=== PATIENT | male | born 1980 | race Caucasian/White ===

== ENCOUNTER 2016-09-06 08:18 | Emergency (ER) | END 2016-09-06 18:17 | disposition short-term general hospital (02) | DX: N30.90 Cystitis, unspecified without hematuria (principal); R45.851 Suicidal ideations | CPT/HCPCS: 80053; 80306; 80307; 81001; 85025; Z7610 ==

== ENCOUNTER 2018-10-15 07:29 | Emergency (ER) | payer MEDICAID, OTHER ==
[~2018-10-15] VITALS: Ht 177.8 cm; Wt 106.0 kg
[~2018-10-15 07:29] MED LIST: NITR-58 PO; VENL37.59 PO
[2018-10-15 07:35] VITALS: Ht 177.8 cm; Wt 106.0 kg
--- NOTE | 2018-10-15 08:07 | PSY ---
Date/Time of Note Date/Time of Note DATE: 10/15/18 TIME: 08:02 Psychiatric Subjective Eval Consent Pt consented to telemedicine: Yes Subjective Evaluation Patient location: emergency Chief Complaint: Complains of having suicidal ideation with a plan Medical history Problems Medical Problems: (1) Cystitis Status: Acute (2) Suicidal ideation Status: Acute Allergies: Coded Allergies: No Known Allergy (Unverified , 09/06/16) Assessment and Plan Recommendation/Plan Discharge Disposition: Psychiatric inpatient Legal Status: Voluntary Assessment Additional comments: IDENTIFYING INFORMATION: 38 year old Male patient who is currently located at the hospital and for whom psychiatric consultation was requested. SOURCES OF INFORMATION: The patient who appears to be reliable and the medical records; the nursing staff. CHIEF COMPLAINT: "depressed". HISTORY OF PRESENT ILLNESS: The patient was interviewed via telemedicine in the presence of and under the supervision of nursing staff of the hospital. The consent to conducting this interview via telemedicine was obtained by the nursing staff at the hospital. Dr. Alan reports that the patient presented with SI. The patient reports having depressed mood, anhedonia, AH, attempted to run into traffic o harm self. The patient denies having insomnia, low appetite. The patient denies using alcohol heavily or regularly. The patient reports using meth once per month. Last use was 1 day ago. The patient denies using any other substances. In terms of past psychiatric history, the patient reports having a history of past psychiatric hospitalizations. The patient reports having a history of past suicide attempts. PAST MEDICAL HISTORY: none. CURRENT MEDICATIONS: seroquel 200 mg po qhs, remeron 15 mg po qhs, ativan unknown dose. ALLERGIES TO MEDICATIONS: NKDA. LABORATORY TESTS: pending. SOCIAL HISTORY: single, no children; not employed. REVIEW OF SYSTEMS: Constitutional (e.g., fever, weight loss): negative; Eyes, Ears, Nose, Mouth, Throat: negative; Cardiovascular: negative; Respiratory: negative; Gastrointestinal: negative; Genitourinary: negative; Musculoskeletal: negative; Integumentary (skin and/or breast): negative; Neurological: negative; Psychiatric: as per HPI; Endocrine: negative; Hematologic/Lymphatic: negative; Allergic/Immunologic: negative. MENTAL STATUS EXAMINATION: General Appearance and Behavior: Calm, cooperative with the interview, pleasant with the current interviewer, makes fair eye contact, fairly groomed, no abnormal movements noted, Speech: Regular rate, regular rhythm, normal latency, normal volume, somewhat decreased amount, Flow of thought: sequential, logical, goal-directed, Content of thought: + auditory hallucinations, no visual hallucinations, no delusions, positive for suicidal ideation; no homicidal ideation, Mood: "depressed", Affect: dysthymic, dysphoric, not reactive, Attention: normal based on the interview, Insight: fair, Judgment: poor, Memory: normal based on the interview, Sensorium: alert and oriented to person, place and date. ASSESSMENT: The patient's presentation and history are consistent with the diagnosis of unspecified psychotic disorder, stimulant use disorder. The patient presents with depressive and psychotic symptoms in the context of reported medication compliance, psychosocial stressors and substance use. PLAN: - Medication management: Would continue seroquel 100 mg po qhs, remeron 15 mg po qhs, ativan 0.5 mg by mouth twice a day as needed for anxiety. Would start haloperidol 5 mg IM PRN severe agitation q4 hours. Would start diphenhydramine 50 mg IM PRN severe agitation q4 hours. Would start lorazepam 2 mg IM PRN severe agitation q4 hours Will defer to the inpatient psychiatry team for other medication changes. - Labs: Please check CBC, CMP, Alcohol level, UDS. - Psychotherapy: Provided supportive psychotherapy and psychoeducation. - Disposition: Would recommend voluntary admission to the inpatient psychiatric unit as the patient would benefit from such an intervention so long as the patient has been cleared medically for admission to psychiatry. The patient is agreeable to being hospitalized in the inpatient psychiatric unit at this time. Would place on suicide precautions. Discussed about the above plan with Dr. Alan. ALVINO PAGAN MD Oct 15, 2018 08:07
[2018-10-15] MEDS ORDERED: LORAZEPAM 0.5 MG TAB PO SCH (09:00)
--- NOTE | 2018-10-15 11:23 | ERD ---
ER Documentation Chief Complaint Chief Complaint Complains of having suicidal ideation with a plan HPI Patient is a 38-year-old male who presents with suicidal thoughts. He has had 2 weeks where he felt isolated at home. He has suicidal ideation with plan. Upon review of old medical records the patient one previous visit to the ER in 2017. Review of the emergency department information exchange system shows visits to 4 separate emergency departments. ROS All systems reviewed and are negative except as per history of present illness. Medications Home Meds Active Scripts Nitrofurantoin Monohyd Macrocr* (Macrobid*) 100 Mg Capsr, 100 MG PO BID for 7 Days, CAP Prov:MIRTA WARD MD 09/06/16 Reported Medications Venlafaxine Hcl* (Effexor XR*) Unknown Strength Tab.er.24, PO DAILY, TAB 09/06/16 Allergies Allergies: Coded Allergies: No Known Allergy (Unverified , 09/06/16) PMhx/Soc History of Surgery: No Anesthesia Reaction: No Hx Neurological Disorder: No Hx Respiratory Disorders: No Hx Cardiac Disorders: No Hx Psychiatric Problems: No Hx Miscellaneous Medical Probl: Yes (depression) Hx Alcohol Use: No Hx Substance Use: No Hx Tobacco Use: No Smoking Status: Never smoker FmHx Family History: No diabetes Physical Exam Vitals Vital Signs Date Temp Pulse Resp B/P (MAP) Pulse Ox O2 O2 Flow FiO2 Time Delivery Rate 10/15/18 98.3 110 20 151/79 93 07:35 (103) Physical Exam Const: No acute distress Head: Atraumatic Eyes: Normal Conjunctiva ENT: Normal External Ears, Nose and Mouth. Neck: Full range of motion. No meningismus. Resp: Clear to auscultation bilaterally Cardio: Regular rate and rhythm, no murmurs Abd: Soft, non tender, non distended. Normal bowel sounds Skin: No petechiae or rashes Back: No midline or flank tenderness Ext: No cyanosis, or edema Neur: Awake and alert Psych: Positive for suicidal ideation with plan Result Diagram: 10/15/18 0757 10/15/18 0757 Results 24 hrs Laboratory Tests Test 10/15/18 07:57 White Blood Count 5.0 10^3/ul Red Blood Count 4.42 10^6/ul Hemoglobin 13.3 g/dl Hematocrit 39.8 % Mean Corpuscular Volume 90.0 fl Mean Corpuscular Hemoglobin 30.1 pg Mean Corpuscular Hemoglobin Concent 33.4 g/dl Red Cell Distribution Width 13.3 % Platelet Count 282 10^3/UL Mean Platelet Volume 9.4 fl Immature Granulocytes % 0.400 % Neutrophils % 54.5 % Lymphocytes % 31.7 % Monocytes % 7.5 % Eosinophils % 5.5 % Basophils % 0.4 % Nucleated Red Blood Cells % 0.0 /100WBC Immature Granulocytes # 0.020 10^3/ul Neutrophils # 2.7 10^3/ul Lymphocytes # 1.6 10^3/ul Monocytes # 0.4 10^3/ul Eosinophils # 0.3 10^3/ul Basophils # 0.0 10^3/ul Nucleated Red Blood Cells # 0.0 10^3/ul Urine Color YELLOW Urine Clarity CLEAR Urine pH 5.0 Urine Specific [place] 1.011 Urine Ketones NEGATIVE mg/dL Urine Nitrite NEGATIVE mg/dL Urine Bilirubin NEGATIVE mg/dL Urine Urobilinogen NEGATIVE mg/dL Urine Leukocyte Esterase NEGATIVE Dalia/ul Urine Hemoglobin NEGATIVE mg/dL Urine Glucose NEGATIVE mg/dL Urine Total Protein NEGATIVE mg/dl Sodium Level 141 mmol/L Potassium Level 4.4 mmol/L Chloride Level 101 mmol/L Carbon Dioxide Level 28 mmol/L Anion Gap 12 Blood Urea Nitrogen 15 mg/dl Creatinine 0.73 mg/dl Est Glomerular Filtrat Rate mL/min > 60 mL/min Glucose Level 106 mg/dl Calcium Level 10.0 mg/dl Total Bilirubin 0.8 mg/dl Direct Bilirubin 0.00 mg/dl Indirect Bilirubin 0.8 mg/dl Aspartate Amino Transf (AST/SGOT) 30 IU/L Alanine Aminotransferase (ALT/SGPT) 30 IU/L Alkaline Phosphatase 75 IU/L Total Protein 7.3 g/dl Albumin 4.4 g/dl Globulin 2.90 g/dl Albumin/Globulin Ratio 1.51 Salicylates Level < 1.0 mg/dl Urine Opiates Screen Negative Acetaminophen Level < 10.0 ug/ml Urine Barbiturates Negative Urine Amphetamines Screen POSITIVE Urine Benzodiazepines Screen Negative Urine Cocaine Screen Negative Urine Cannabinoids Negative Ethyl Alcohol Level < 10.0 mg/dl Current Medications Medications Dose Sig/Minoo Start Time Status Last (Trade) Ordered Route PRN Stop Time Admin Dose Reason Admin Quetiapine 100 mg QHS PO 10/15/18 Fumarate 21:00 (Seroquel) Mirtazapine 15 mg QHS PO 10/15/18 (Remeron) 21:00 Lorazepam 0.5 mg BID PO 10/15/18 10/15/18 (Ativan) 09:00 08:24 Procedures/MDM Patient is a 38-year-old male who presents with suicidal ideation with plan. He was recommended 5150 hold by psychiatry. I have ordered psychiatric medications. The patient will need transfer to a psychiatric facility. He is now medically clear. Departure Diagnosis: Primary Impression: Suicidal ideation Condition: MIRTA Gong MD Oct 15, 2018 11:23
[2018-10-15 13:35] VITALS: BP 117/71; PULSE 77; RESP 18
[2018-10-15] MEDS ORDERED: QUETIAPINE 100 MG TAB PO SCH (21:00)
[2018-10-15] MEDS ORDERED: MIRTAZAPINE 15 MG TAB PO SCH (21:00)
== END 2018-10-15 13:54 ==
LOC: E/R 07:29
DX: R45.851 Suicidal ideations (principal)
CPT/HCPCS: 36415; 80053; 80307; 81003; 85025; Z7502; Z7610

== ENCOUNTER 2018-12-11 05:35 | Emergency (ER) | payer OTHER ==
[~2018-12-11] VITALS: Ht 180.3 cm; Wt 107.0 kg
[2018-12-11 05:40] VITALS: Ht 180.3 cm; Wt 107.0 kg
--- NOTE | 2018-12-11 09:17 | ERD ---
ER Documentation Chief Complaint Chief Complaint PT STATES HE WANTS TO KILL HIMSELF BY RUNNING INTO TRAFFIC HPI This is a 38-year-old male with a past medical history of bipolar schizoaffec tive disorder and depression. The patient indicates for the past 2 days he has been having suicidal thoughts. He has a plan where he states he wants to run in front of traffic. He states he was on Cymbalta [place] running in front of traffic just prior to arrival. He came to the emergency department requesting help. He states he has not taken any of his antipsychotic medications for the past 48 hours. He states he had multiple previous suicide attempt in the past where he is overdosed on medications, slit his wrists and jumped in front of traffic. He denies any chest pain. He has no shortness of breath. He has no fevers or shaking or chills. ROS All systems reviewed and are negative except as per history of present illness. Medications Home Meds Active Scripts Nitrofurantoin Monohyd Macrocr* (Macrobid*) 100 Mg Capsr, 100 MG PO BID for 7 Days, CAP Prov:MIRTA WARD MD 09/06/16 Reported Medications Venlafaxine Hcl* (Effexor XR*) Unknown Strength Tab.er.24, PO DAILY, TAB 09/06/16 Allergies Allergies: Coded Allergies: No Known Allergy (Unverified , 09/06/16) PMhx/Soc History of Surgery: No Anesthesia Reaction: No Hx Neurological Disorder: No Hx Respiratory Disorders: No Hx Cardiac Disorders: No Hx Psychiatric Problems: No Hx Miscellaneous Medical Probl: Yes (depression) Hx Alcohol Use: No Hx Substance Use: No Hx Tobacco Use: No Physical Exam Vitals Vital Signs Date Temp Pulse Resp B/P (MAP) Pulse Ox O2 O2 Flow FiO2 Time Delivery Rate 12/11/18 97.6 72 20 181/97 100 05:40 (125) Physical Exam Constitutional:Well-developed. Well-nourished. HEENT:Normocephalic. Atraumatic.Pupils were equal round reactive to light. Moist mucous membranes.No tonsillar exudates. Neck: No nuchal rigidity. No lymphadenopathy. No posterior cervical spine tenderness or step-offs. Respiratory: Not using accessory muscles of respiration.Lungs were clear to auscultation bilaterally. No rhonchi. No rales. No wheezing. Cardiovascular: Regular rate regular rhythm.No murmurs. No rubs were appreciated.S1, S2 normal. Distal pulses are palpable 2+ bilaterally. GI: Abdomen was soft. Nontender. Non Distended. No pulsatile abdominal masses or bruits. No rebound. No guarding. Bowel sounds were present and normal. Muscle skeletal: Full range of motion of both the upper and lower extremities bilaterally.Normal muscle tone.No assymetrical calf tenderness or swelling. Skin: No petechia, no purpura. No lesions on the palms or the soles of the feet. No maculopapular rash. NEURO: Patient was alert, awake, orientated x3.No facial droop. Gait observed and normal with no ataxia.Speech had regular rate and rhythm. No focal neurological deficits. PSYCH: Patient was very engaged. However he spoke in a soft tone. He did express suicidal thoughts and ideations. He had no auditory tactile visual hallucinations. Procedures/MDM The patient presented to the emergency department with an active suicidal ideation. My differential diagnosis included but was not limited to major depressive disorder, normal despondency, bipolar disorder, schizophrenia, anxiety disorder, borderline personality disorder, antisocial personality disorder, organic mental disorder, bereavement or alcohol or drug abuse. Ancillary lab work was obtained including blood alcohol level, drug screen and serum toxicology panel. The patient was provided a safe environment while in the emergency department with appropriate supervision. The patient will be seen and evaluated by the tele-psychiatrist. Departure Diagnosis: Primary Impression: Suicidal ideation Condition: Serious KASIA TOM MD December 11, 2018 09:17
[2018-12-11] MEDS ORDERED: MIRT15TA5 PO (09:54)
[2018-12-11] MEDS ORDERED: LORAZEPAM 1 MG TAB PO ONE ×2 (11:00→18:00)
--- NOTE | 2018-12-11 12:39 | PSY ---
Date/Time of Note Date/Time of Note DATE: 12/11/18 TIME: 12:35 Psychiatric Subjective Eval Consent Pt consented to telemedicine: Yes Subjective Evaluation Patient location: emergency Chief Complaint: PT STATES HE WANTS TO KILL HIMSELF BY RUNNING INTO TRAFFIC History of present illness 38 yo homeless male with hx schizophrenia and meth use presents to ED stating he is sucidal; pt is drowsy and is falling asleep during the consultation. HE has bright affect but say he is sucidal and he is not safe to be dischrged. Then asked about his plans for self harm he says he will get a noose or a chain and will "tie it to an animal". He says he was sitting on train tracks and also was running into traffic. he reprots command AH. No VH . +paranoia. Denies recent meth use. No meds.No HI. Past psychiatric history multiple inpt Hospitalization: yes Family History unknown Medical history Problems Medical Problems: (1) Cystitis Status: Acute (2) Suicidal ideation Status: Acute (3) Suicidal ideation Status: Acute (4) Suicidal ideation Status: Acute Allergies: Coded Allergies: No Known Allergy (Unverified , 12/11/18) Substance Abuse Substance abuse history: Yes Prior substance abuse treatmen: Yes Social History Marital status: single DPA/Conservatorship: No Occupation/Senior Living: unemployed, homeless Psychiatric Objective Eval Review of Systems: Review of Systems: Not Applicable Physical Examination: Physical Examination: Not Applicable Mental Status Examination: Appearance: Poor Hygiene Eye Contact: Fair Psychomotor Activity: Normal Behavior: Cooperative AFFECT: Other Mood: Depressed Though Process: Tangential Thought Content: Hallucinations Suicidal: Yes Homicidal: No On 72 hour hold: No Cognition: Drowsy Insight: Impared Judgement: Impared Attention Span: Distractible Laboratory Results Laboratory Tests Test 12/11/18 09:20 White Blood Count 5.8 10^3/ul Red Blood Count 5.17 10^6/ul Hemoglobin 15.5 g/dl Hematocrit 47.3 % Mean Corpuscular Volume 91.5 fl Mean Corpuscular Hemoglobin 30.0 pg Mean Corpuscular Hemoglobin Concent 32.8 g/dl Red Cell Distribution Width 14.2 % Platelet Count 260 10^3/UL Mean Platelet Volume 10.6 fl Immature Granulocytes % 0.200 % Neutrophils % 54.0 % Lymphocytes % 36.3 % Monocytes % 6.9 % Eosinophils % 2.1 % Basophils % 0.5 % Nucleated Red Blood Cells % 0.0 /100WBC Immature Granulocytes # 0.010 10^3/ul Neutrophils # 3.1 10^3/ul Lymphocytes # 2.1 10^3/ul Monocytes # 0.4 10^3/ul Eosinophils # 0.1 10^3/ul Basophils # 0.0 10^3/ul Nucleated Red Blood Cells # 0.0 10^3/ul Prothrombin Time 12.4 Sec Prothrombin Time Ratio 1.0 INR International Normalized Ratio 0.91 Activated Partial Thromboplast Time 27.4 Sec Urine Color YELLOW Urine Clarity SLIGHTLY CLOUDY Urine pH 6.0 Urine Specific [place] 1.014 Urine Ketones TRACE mg/dL Urine Nitrite NEGATIVE mg/dL Urine Bilirubin NEGATIVE mg/dL Urine Urobilinogen NEGATIVE mg/dL Urine Leukocyte Esterase NEGATIVE Dalia/ul Urine Microscopic RBC 0 /HPF Urine Microscopic WBC 1 /HPF Urine Hemoglobin NEGATIVE mg/dL Urine Glucose NEGATIVE mg/dL Urine Total Protein NEGATIVE mg/dl Sodium Level 139 mmol/L Potassium Level 4.1 mmol/L Chloride Level 98 mmol/L Carbon Dioxide Level 30 mmol/L Anion Gap 11 Blood Urea Nitrogen 12 mg/dl Creatinine 0.72 mg/dl Est Glomerular Filtrat Rate mL/min > 60 mL/min Glucose Level 104 mg/dl Calcium Level 10.1 mg/dl Total Bilirubin 0.8 mg/dl Direct Bilirubin 0.00 mg/dl Indirect Bilirubin 0.8 mg/dl Aspartate Amino Transf (AST/SGOT) 31 IU/L Alanine Aminotransferase (ALT/SGPT) 21 IU/L Alkaline Phosphatase 86 IU/L Total Protein 8.9 g/dl Albumin 5.0 g/dl Globulin 3.90 g/dl Albumin/Globulin Ratio 1.28 Salicylates Level < 1.0 mg/dl Urine Opiates Screen NEGATIVE Acetaminophen Level < 10.0 ug/ml Urine Barbiturates NEGATIVE Urine Amphetamines Screen NEGATIVE Urine Benzodiazepines Screen NEGATIVE Urine Cocaine Screen NEGATIVE Urine Cannabinoids NEGATIVE Ethyl Alcohol Level < 10.0 mg/dl Assessment and Plan Assessment/Diagnosis Diagnosis PARANOID SCHIZOPHRENIA Recommendation/Plan Medication Management SEROQUEL 200 MG POQHS; FOR AGITATION: zYPREXA 10 MG + ATIVAN 2 MG + bENADRYL 50 MG im PRN Q 12 HRS Multiple antipsychotics: Yes Discharge Disposition: Psychiatric inpatient Legal Status: Place involuntary hold LILLI LEONARD MD December 11, 2018 12:39
[2018-12-11 16:05] VITALS: BP 149/82; PULSE 86; RESP 16
--- NOTE | 2018-12-11 22:12 | EN ---
Date/Time of Note Date/Time of Note DATE: 12/11/18 TIME: 22:11 ER Progress Note Indication: Duration: 4 hr Family History: As documented in the original HPI The patient was observed with serial exams over the above timeframe. The patient continued to be well-appearing and observation continued without complication. All other needs have been met during emergency department stay. Hold status: [Telemetry medicine psychiatry recommended 5150 hold] PET released 5150 hold at 10 pm Placement status: DC I discussed the findings with the patient. I advised the patient to follow-up with the primary physician/psychiatrist in about 2-3 days, sooner if needed and return if any concern. Disclaimer: Inadvertent spelling and grammatical errors are likely due to EHR/dictation software use and do not reflect on the overall quality of patient care. Also, please note that the electronic time recorded on this note does not necessarily reflect the actual time of the patient encounter. PATRICE CEDENO MD December 11, 2018 22:12
== END 2018-12-11 22:18 | disposition home or self-care (01) ==
LOC: E/R 05:35
DX: R45.851 Suicidal ideations (principal)
CPT/HCPCS: 80053; 80307; 81001; 85025; 85610; 85730; Z7502; Z7610; 81003; 99285